=== PATIENT | female | born 1985 | race Two or more races ===

== ENCOUNTER 2022-02-15 17:20 | Emergency (ER) | payer MEDICAID, OTHER ==
[~2022-02-15] VITALS: Ht 162.6 cm; Wt 59.0 kg
[2022-02-15 22:49] VITALS: BP 110/63
== END 2022-02-16 02:03 | disposition left against medical advice (07) ==
LOC: EDBD 17:20 → ER 17:20
DX: M25.571 Pain in right ankle and joints of right foot (principal); Z53.21 Procedure and treatment not carried out due to patient leaving prior to being seen by health care provider
CPT/HCPCS: 73610